=== PATIENT | female | born 1975 | race African-American/Black ===

== ENCOUNTER 2022-09-24 17:08 | Emergency (ER) | payer OTHER ==
[~2022-09-24] VITALS: Ht 170.2 cm; Wt 86.0 kg
[2022-09-24 17:24] VITALS: BP 159/116
== END 2022-09-24 18:17 | disposition left against medical advice (07) ==
LOC: ER 17:08
DX: Z53.21 Procedure and treatment not carried out due to patient leaving prior to being seen by health care provider (principal)